=== PATIENT | female | born 1960 | race Caucasian/White ===

== ENCOUNTER 2017-06-26 18:24 | Emergency (ER) | payer BC ==
[~2017-06-26] VITALS: Ht 167.6 cm; Wt 66.7 kg
[2017-06-26] MEDS ORDERED: ESCI20TA PO (18:33)
[2017-06-26] MEDS ORDERED: METH36TA PO (18:33)
[2017-06-26] MEDS ORDERED: CLAR500T3 PO (18:33)
--- NOTE | 2017-06-26 19:29 | NUR ---
Patient discharged to home in stable conditon. Written and verbal after care instructions given. Patient verbalizes understanding of instructions. Ambulated from ER with stable gait. All belongings with patient.
[2017-06-26 19:30] VITALS: BP 130/82
== END 2017-06-26 19:31 | disposition home or self-care (01) ==
LOC: ER 18:25
DX: S61.001A Unspecified open wound of right thumb without damage to nail, initial encounter (principal); W26.0XXA Contact with knife, initial encounter; Y92.89 Other specified places as the place of occurrence of the external cause; Y93.89 Activity, other specified; Y99.8 Other external cause status
CPT/HCPCS: A4663